=== PATIENT | male | born 1955 | race Caucasian/White ===

== ENCOUNTER 2022-03-04 06:31 | Inpatient (IN) | payer MEDICAID ==
[2022-02-26 15:56] LABS: BASOPHILS # (AUTO) 0.1 X10'3 (0-0.2); BASOPHILS % (AUTO) 0.8 % (0-1); EOSINOPHILS # (AUTO) 0.1 X10'3 (0-0.9); EOSINOPHILS % (AUTO) 1.9 % (0-6); LYMPHOCYTES % (AUTO) 16.3 % (21-51); MEAN CORPUSCULAR HEMOGLOBIN 32.3 PG (27.0-31.0); MEAN CORPUSCULAR HGB CONC 34.2 g/dL (33.0-36.5); MEAN CORPUSCULAR VOLUME 94.5 FL (78-98); MEAN PLATELET VOLUME 8.9 FL (7.4-10.4); MONOCYTES # (AUTO) 0.6 X10'3 (0-0.9); NEUTROPHILS # (AUTO) 4.5 X10'3 (1.8-7.7); PRE OP HEMATOCRIT 43.1 % (42.0-52.0); PRE OP HEMOGLOBIN 14.7 g/dL (14.0-17.9); PRE OP PLATELET COUNT 233 X10'3 (140-440); RED BLOOD COUNT 4.56 X10'6 (4.70-6.10); RED CELL DISTRIBUTION WIDTH 14.1 % (11.5-14.5)
[2022-02-26 16:02] LABS: PRE OP PROTIME 10.2 SECONDS (9.0-12.0)
[2022-02-26 16:12] LABS: ALBUMIN/GLOBULIN RATIO 1.4 (1.1-1.5); ALKALINE PHOSPHATASE 87 IU/L (46-116); BLOOD UREA NITROGEN 4 MG/DL (7-18); BUN/CREATININE RATIO 2.5 (5.4-32.0); CALCIUM 8.4 MG/DL (8.5-10.1); CHLORIDE 100 MMOL/L (99-107); CREATININE 1.57 MG/DL (0.60-1.10); PRE OP ALT 21 U/L (30-65); PRE OP ANION GAP 10 (8-16); PRE OP AST 21 U/L (10-37); PRE OP BILIRUB, TOTAL 0.4 MG/DL (0.0-1.0); PRE OP GLUCOSE 114 MG/DL (70-104); PRE OP SODIUM 135 MMOL/L (135-145); TOTAL CARBON DIOXIDE 24.9 MMOL/L (24-32); TOTAL PROTEIN 6.9 G/DL (6.4-8.2); eGFR 45 ML/MIN
[~2022-03-04] VITALS: Ht 170.2 cm; Wt 69.2 kg
[2022-03-04] VITALS (26 sets, daily range): BP systolic 117–177; BP diastolic 63–113
[~2022-03-04 06:31] MED LIST: ALBU8.5H17 INH; ASPI81TA52 PO; ATOR40TA72 PO; CLON1TAB12 PO; DOCUMENT DATE & TIME OF BETA-BLOCKER PO ONE; FOLI1TAB27 PO; GABA300C PO; HYDR-3972 PO; LANS30TA4 PO; LEVO100T9 PO; LOP12.5T PO; NITR0.4T51 SL; NITR1PAT63 TD; albuterol 2.5 MG/3 ML nebule NEB ONE; cefazolin/dext.iso 2gm/50ml IV ONE; famotidine 20mg tablet PO ONE; ringers solution, lacted 1,000 ML IV SCH; vancomycin/NS 1 GM in NS 250 ML IV ONE
[2022-03-04] MEDS ORDERED: vancomycin 1,000mg inj ONE (07:37)
--- NOTE | 2022-03-04 08:00 | NUR ---
CSM TO BILAT FEET INTACT. PEDAL PULSES NORMAL AND MARKED, PT USED OINTMENT TO NOSE X 4 DAYS, SHOWERD WITH HIBICLENS X 5 DAYS. PT STATES HE DID NOT WATCH THE DVD "BECAUSE I JUST DIDNT WANT TO" EDUCATED PT THE IMPORTANCE OF WATCHING THE DVD IS HAS EDUCATION OF POST OP AND WHAT TO EXPECT. PT STATS HE WILL WATCH IT ONCE HE IS DC HOME
[2022-03-04] MEDS ORDERED: cloNIDine hcl/PF 100mcg/ml inj ONE (08:07)
[2022-03-04] MEDS ORDERED: tetracaine 1% (10mg/ml) pres. free inj. ONE (08:09)
[2022-03-04] MEDS ORDERED: midazolam 1 mg/ML 2ml injection ONE (08:10)
[2022-03-04] MEDS ORDERED: morphine /PF 1mg/ml 10ml inj. ONE (08:38)
[2022-03-04] MEDS ORDERED: 0.9 % SODIUM CHLORIDE 10 ML VIAL ONE ×2 (09:36)
[2022-03-04] MEDS ORDERED: ROPIVAcaine 0.5% (5mg/ml) 30ml vial ONE ×2 (09:36→11:29)
[2022-03-04] MEDS ORDERED: propofol inj 20 ML IV ONE ×2 (09:36)
[2022-03-04] MEDS ORDERED: dexamethasone sod phosphate 4mg/ml inj. ONE (09:36)
[2022-03-04] MEDS ORDERED: ipratropium/albuterol 3ml nebule IH ONE (09:45)
[2022-03-04] MEDS ORDERED: diphenhydrAMINE 50 mg/ml inj IV PRN (09:45)
[2022-03-04] MEDS ORDERED: naloxone 2mg/2ml inj 2 MG in normal saline 500ml IV soln 500 ML IV PRN (09:45)
[2022-03-04] MEDS ORDERED: proCHLORperazine 10 MG/2 ml inj IV PRN (09:45)
[2022-03-04] MEDS ORDERED: morphine 2 MG/ML inj. syringe IV PRN (09:45)
[2022-03-04] MEDS ORDERED: naloxone 0.4 mg/ml inj IV PRN ×2 (09:45→12:00)
[2022-03-04] MEDS ORDERED: acetaminophen 1,000mg/100ml IV 100 ML IV PRN (09:45)
[2022-03-04] MEDS ORDERED: meperidine/PF 25mg/ml syringe IV PRN (09:45)
[2022-03-04] MEDS ORDERED: HYDROmorphone/PF 0.2 MG/ML SYRINGE IV PRN ×2 (09:45)
[2022-03-04] MEDS ORDERED: ringers solution, lacted 1,000 ML IV SCH (09:45)
[2022-03-04] MEDS ORDERED: labetalol 20mg/4ml (5mg/ml) syringe IV PRN (09:45)
[2022-03-04] MEDS ORDERED: hydrALAZINE 20mg/ml inj. IV PRN (09:45)
[2022-03-04] MEDS ORDERED: morphine 4 MG/ML inj SYRINge IV PRN (09:45)
[2022-03-04] MEDS ORDERED: ondansetron/PF 4mg/2ml inj IV PRN ×3 (09:45→12:00)
[2022-03-04] MEDS ORDERED: tranexamic acid inj. 1,000 MG in 0.7% saline 100 ML PMX IV ONE (10:50)
--- NOTE | 2022-03-04 11:41 | NUR ---
Received from OR via HOSPITAL BED, accompanied by Anesthesiologist DR COFFEY and report given by Anesthesiolgist. PT PRESENTS WITH PIV 18G LEFT HAND, WRAP WITH POWDER PACK, FAM CATHETER 850MLS OUTPUT, VSS. Addendum: 03/04/22 at 1158 by Miriam Goodwin RN, RN Amended: Links added.
[2022-03-04] MEDS ORDERED: bisacodyl 10mg suppository rectal RC PRN (12:00)
[2022-03-04] MEDS ORDERED: oxyCODONE IR 5mg (immed. release) tablet PO PRN (12:00)
[2022-03-04] MEDS ORDERED: acetaminophen 325mg tablet PO PRN (12:00)
[2022-03-04] MEDS ORDERED: magnesium hydroxide 30ml (MOM) UD suspension PO PRN (12:00)
[2022-03-04] MEDS ORDERED: HYDROmorphone inj. 0.5 MG/0.5 ML DISP.SYRIN IV PRN (12:00)
[2022-03-04] MEDS ORDERED: HYDROmorphone 1 mg/ml syringe IV PRN (12:00)
[2022-03-04] MEDS ORDERED: diphenhydrAMINE 25mg capsule PO PRN ×2 (12:00)
--- NOTE | 2022-03-04 12:15 | NUR ---
PER DR COFFEY, 10:00 TRANEXAMIC ACID 1,000MG GIVEN IN THE OR. Addendum: 03/04/22 at 1217 by Miriam Goodwin RN, RN Amended: Links added.
--- NOTE | 2022-03-04 12:41 | NUR ---
Patient in room PAS IN 901. I have received report from Miriam in recovery room and had the opportunity to ask questions and assume patient care.
[2022-03-04] MEDS ORDERED: HYDROcodone/acetaminophen 10/325mg tab PO PRN (12:55)
[2022-03-04] MEDS ORDERED: clonazePAM 1mg tablet PO PRN (12:55)
[2022-03-04] MEDS ORDERED: albuterol 2.5 MG/3 ML nebule NEB PRN (12:55)
[2022-03-04] MEDS ORDERED: nitroGLYCERIN 0.4mg SUBLingual tab SL SCH (12:55)
--- NOTE | 2022-03-04 14:01 | NUR ---
Report called to receiving nurse KERRIE ROMAN. Transferred via [facility]OPS[facility] BED. PT Belongings WERE LEFT WITH PT'S LUIS IN WAITING ROOM. PT BECAME AGGITATED IN THE PACU AND REPORTED HE WAS GOING TO GO AMA IF HIS COULD NOT STAY WITH HIM OVERNIGHT. REPORT GIVEN TO KERRIE ROMAN. PT TAKEN TO ROOM 401 BY OR [employer]. Special Issues communicated to receiving nurse. Addendum: 03/04/22 at 1425 by Miriam Goodwin RN, RN Amended: Links added.
--- NOTE | 2022-03-04 14:32 | NUR ---
Patient is currently teary eyed and is at bedside. He insists he will leave rosalina acosta, I said to him lets try to at least get the physical therapist to see you first.
[2022-03-04] MEDS: acetaminophen 325mg tablet PO SCH ×2 (14:46→20:03)
[2022-03-04] MEDS: gabapentin 300mg capsule PO SCH ×2 (14:47→20:07)
[2022-03-04] MEDS ORDERED: tranexamic acid inj. 700 MG in normal saline 100ml IV soln 93 ML IV ONE (15:00)
[2022-03-04] MEDS: ceFAZolin/D5W- 1GM premix 50 ML IV SCH (16:10)
[2022-03-04] MEDS: potassium cl 20mEq in 1/2 NS 1,000 ML IV SCH (16:11)
[2022-03-04] MEDS: metoprolol tartrate 25mg tablet PO SCH (20:00)
[2022-03-04] MEDS ORDERED: vancomycin/NS 1 GM ADD-VANTAGE 250 ML IV SCH (20:00)
[2022-03-04] MEDS: oxyCODONE IR 5mg (immed. release) tablet PO PRN (20:15)
[2022-03-04] MEDS ORDERED: gabapentin 300mg capsule PO SCH (21:00)
[2022-03-04] MEDS ORDERED: sennosides 8.6mg tablet PO SCH (21:00)
[2022-03-05] MEDS: ceFAZolin/D5W- 1GM premix 50 ML IV SCH (00:40)
[2022-03-05] MEDS: oxyCODONE IR 5mg (immed. release) tablet PO PRN ×3 (01:27→11:19)
[2022-03-05] MEDS: acetaminophen 325mg tablet PO SCH ×2 (01:27→07:26)
[2022-03-05 02:00] VITALS: BP 121/75
[2022-03-05] MEDS: potassium cl 20mEq in 1/2 NS 1,000 ML IV SCH (05:36)
[2022-03-05 06:00] VITALS: BP 141/66
[2022-03-05 06:31] LABS: BASOPHILS % (AUTO) 0.3 % (0-1); EOSINOPHILS % (AUTO) 0.3 % (0-6); HEMATOCRIT 41.5 % (42.0-52.0); HEMOGLOBIN 13.9 g/dl (14.0-17.9); LYMPHOCYTES # (AUTO) 1.4 X10'3 (1.1-4.8); LYMPHOCYTES % (AUTO) 16.4 % (21-51); MEAN CORPUSCULAR HEMOGLOBIN 31.6 PG (27.0-31.0); MEAN CORPUSCULAR HGB CONC 33.6 g/dL (33.0-36.5); MEAN CORPUSCULAR VOLUME 94.3 FL (78-98); MEAN PLATELET VOLUME 9.5 FL (7.4-10.4); MONOCYTES # (AUTO) 1.1 X10'3 (0-0.9); MONOCYTES % (AUTO) 12.4 % (2-12); NEUTROPHILS % (AUTO) 70.6 % (42-75); PLATELET COUNT 198 X10'3 (140-440); WHITE BLOOD COUNT 8.5 X10'3 (4.5-11.0)
--- NOTE | 2022-03-05 06:37 | NUR ---
Problems reprioritized. Patient report given, questions answered & plan of care reviewed with ABEL WHARTON.
--- NOTE | 2022-03-05 06:38 | NUR ---
Patient in room ORTHO 4015. I have received report from Angeles ROMAN and had the opportunity to ask questions and assume patient care.
[2022-03-05 07:13] LABS: ANION GAP 10 (8-16); CHLORIDE 103 MMOL/L (99-107); POTASSIUM 4.1 MMOL/L (3.5-5.1); SODIUM 140 MMOL/L (135-145); TOTAL CARBON DIOXIDE 27.3 MMOL/L (24-32)
[2022-03-05] MEDS: gabapentin 300mg capsule PO SCH (07:26)
[2022-03-05] MEDS: metoprolol tartrate 25mg tablet PO SCH (07:27)
[2022-03-05] MEDS ORDERED: atorvastatin 20mg tablet PO SCH (08:00)
[2022-03-05] MEDS ORDERED: pantoprazole 40mg Tablet.DR PO SCH (08:00)
[2022-03-05] MEDS ORDERED: enoxaparin 40mg/0.4ml syringe SQ SCH (08:00)
[2022-03-05] MEDS ORDERED: nitroGLYCERIN 0.2mg/hour patch TD SCH (08:00)
[2022-03-05] MEDS ORDERED: levoTHYROXINE 100mcg tablet PO SCH (08:00)
[2022-03-05] MEDS ORDERED: folic acid 1mg tablet PO SCH (08:00)
--- NOTE | 2022-03-05 09:48 | NUR ---
Joint Surgery Consult: Pt s/p R hip surgery this admit. Pt seen by MILVIA for written/verbal high protein diet ed w/ RD contact information provided. MILVIA encouraged pt to contact dietitian's office if further questions/concerns. Addendum: 03/05/22 at [address] Amended: Links added.
[2022-03-05 10:00] VITALS: BP 150/83
[2022-03-05] MEDS ORDERED: nitroGLYCERIN 0.4mg SUBLingual tab SL PRN (10:45)
--- NOTE | 2022-03-05 14:07 | NUR ---
Explained all discharge and medication instructions to pt and his . Pt verbalized understanding. Discontinued piv, tip intact.
[2022-03-05] MEDS ORDERED: celeCOXIB 100mg capsule PO SCH (20:00)
[2022-03-06] MEDS ORDERED: acetaminophen 325mg tablet PO PRN (12:00)
== END 2022-03-05 13:00 | disposition home or self-care (01) | DRG 324 ==
LOC: PAS IN 06:31 → ORTHO 4S 14:10
PROVIDERS: ADMIT Orthopaedic Surgery; ATTEND Orthopaedic Surgery
PROC: 3E0T3BZ Introduction of Anesthetic Agent into Peripheral Nerves and Plexi, Percutaneous Approach (ICD-10-PCS; 2022-03-04)
PROC: 3E0T33Z Introduction of Anti-inflammatory into Peripheral Nerves and Plexi, Percutaneous Approach (ICD-10-PCS; 2022-03-04)
PROC: 0SR9029 Replacement of Right Hip Joint with Metal on Polyethylene Synthetic Substitute, Cemented, Open Approach (ICD-10-PCS; principal; 2022-03-04 08:33)
DX: M16.11 Unilateral primary osteoarthritis, right hip (principal); I12.9 Hypertensive chronic kidney disease with stage 1 through stage 4 chronic kidney disease, or unspecified chronic kidney disease; J44.9 Chronic obstructive pulmonary disease, unspecified; N18.9 Chronic kidney disease, unspecified
CPT/HCPCS: 36415; 71046; 72170; 80051; 80053; 82948; 84443; 85025; 85610; 85730; 86870; 86880; 86885; 86900; 86901; 86920; 86922; 87081; 94760; 97110; 97116; 97161; 97530; G0378; J0690; J0735; J1100; J1170; J1650; J2250; J2274; J2704; J2795; J3370; J3480; J3490; J7120; U0003; U0005

== ENCOUNTER 2023-07-17 14:13 | Emergency (ER) | payer MEDICAID ==
[~2023-07-17 14:13] MED LIST changes: -DOCUMENT DATE & TIME OF BETA-BLOCKER PO ONE; -albuterol 2.5 MG/3 ML nebule NEB ONE; -cefazolin/dext.iso 2gm/50ml IV ONE; -famotidine 20mg tablet PO ONE; -ringers solution, lacted 1,000 ML IV SCH; -vancomycin/NS 1 GM in NS 250 ML IV ONE
[2023-07-17 14:39] LABS: BASOPHILS # (AUTO) 0.1 X10'3 (0-0.2); BASOPHILS % (AUTO) 0.9 % (0-1); EOSINOPHILS # (AUTO) 0.2 X10'3 (0-0.9); EOSINOPHILS % (AUTO) 2.2 % (0-6); HEMATOCRIT 40.9 % (42.0-52.0); LYMPHOCYTES # (AUTO) 1.4 X10'3 (1.1-4.8); LYMPHOCYTES % (AUTO) 19.5 % (21-51); MEAN CORPUSCULAR HEMOGLOBIN 32.2 PG (27.0-31.0); MEAN CORPUSCULAR HGB CONC 34.2 g/dL (33.0-36.5); MEAN CORPUSCULAR VOLUME 94.2 FL (78-98); MEAN PLATELET VOLUME 8.4 FL (7.4-10.4); MONOCYTES # (AUTO) 0.7 X10'3 (0-0.9); MONOCYTES % (AUTO) 9.7 % (2-12); NEUTROPHILS % (AUTO) 67.7 % (42-75); PLATELET COUNT 224 X10'3 (140-440); RED BLOOD COUNT 4.34 X10'6 (4.70-6.10); RED CELL DISTRIBUTION WIDTH 14.3 % (11.5-14.5); WHITE BLOOD COUNT 7.4 X10'3 (4.5-11.0)
[2023-07-17 14:49] LABS: ALANINE AMINOTRANSFERASE 29 U/L (12-78); ALBUMIN 3.8 G/DL (3.4-5.0); ALBUMIN/GLOBULIN RATIO 1.4 (1.1-1.5); ALKALINE PHOSPHATASE 87 IU/L (46-116); ANION GAP 5 (8-16); ASPARTATE AMINO TRANSFERASE 23 U/L (10-37); BILIRUBIN,TOTAL 0.4 MG/DL (0.1-1.0); BLOOD UREA NITROGEN 14 MG/DL (7-18); BUN/CREATININE RATIO 8.1 (10.0-20.0); CALCIUM 8.6 MG/DL (8.5-10.1); CHLORIDE 101 MMOL/L (99-107); CREATININE 1.72 MG/DL (0.60-1.10); GLUCOSE 107 MG/DL (70-104); POTASSIUM 4.3 MMOL/L (3.5-5.1); SODIUM 135 MMOL/L (135-145); TOTAL CARBON DIOXIDE 29.2 MMOL/L (24-32); TOTAL PROTEIN 6.6 G/DL (6.4-8.2); eGFR 40 ML/MIN
[2023-07-17 14:57] LABS: PRO BRAIN NATRIURETIC PEPTIDE 96 PG/ML (0-125)
== END 2023-07-17 17:56 | disposition left against medical advice (07) ==
LOC: ER 14:14
DX: R07.89 Other chest pain (principal); Z53.21 Procedure and treatment not carried out due to patient leaving prior to being seen by health care provider
CPT/HCPCS: 36415; 80053; 83880; 84484; 85025; 93005; 99281

== ENCOUNTER 2024-10-13 17:33 | Emergency (ER) | payer MEDICAID ==
[~2024-10-13] VITALS: Ht 170.2 cm; Wt 59.1 kg
[2024-10-13 19:03] LABS: ALANINE AMINOTRANSFERASE 17 U/L (12-78); ALBUMIN 4.4 G/DL (3.4-5.0); ALBUMIN/GLOBULIN RATIO 1.4 (1.1-1.5); ALKALINE PHOSPHATASE 69 IU/L (46-116); ANION GAP 8 (8-16); ASPARTATE AMINO TRANSFERASE 22 U/L (10-37); BILIRUBIN,TOTAL 0.4 MG/DL (0.1-1.0); BLOOD UREA NITROGEN 18 MG/DL (7-18); CALCIUM 8.8 MG/DL (8.5-10.1); CHLORIDE 99 MMOL/L (99-107); GLUCOSE 92 MG/DL (70-104); LIPASE 47 U/L (16-77); POTASSIUM 4.1 MMOL/L (3.5-5.1); SODIUM 135 MMOL/L (135-145); TOTAL PROTEIN 7.6 G/DL (6.4-8.2); eCRCL 40 ML/MIN; eGFR 47 ML/MIN
[2024-10-13 19:10] LABS: BASOPHILS % (AUTO) 0.5 % (0-1); EOSINOPHILS % (AUTO) 0.4 % (0-6); HEMATOCRIT 40.8 % (42.0-52.0); HEMOGLOBIN 13.9 g/dl (14.0-17.9); LYMPHOCYTES # (AUTO) 1.3 X10'3 (1.1-4.8); LYMPHOCYTES % (AUTO) 18.2 % (21-51); MEAN CORPUSCULAR HEMOGLOBIN 32.9 PG (27.0-31.0); MEAN CORPUSCULAR VOLUME 96.9 FL (78-98); MEAN PLATELET VOLUME 8.8 FL (7.4-10.4); MONOCYTES # (AUTO) 0.8 X10'3 (0-0.9); MONOCYTES % (AUTO) 10.8 % (2-12); NEUTROPHILS % (AUTO) 70.1 % (42-75); PLATELET COUNT 236 X10'3 (140-440); RED BLOOD COUNT 4.21 X10'6 (4.70-6.10); RED CELL DISTRIBUTION WIDTH 13.6 % (11.5-14.5); WHITE BLOOD COUNT 7.1 X10'3 (4.5-11.0)
[2024-10-13] MEDS ORDERED: LACT10SO7 PO (22:16)
[2024-10-13 22:41] VITALS: BP 152/78; PULSE 80; RESP 16; TEMP 98.5; O2SAT 98
== END 2024-10-13 22:44 | disposition home or self-care (01) ==
LOC: ER 17:34
DX: K59.00 Constipation, unspecified (principal); G89.29 Other chronic pain; M54.9 Dorsalgia, unspecified; Z79.82 Long term (current) use of aspirin; Z79.899 Other long term (current) drug therapy
CPT/HCPCS: 36415; 74018; 80053; 83690; 85025; 99284

== ENCOUNTER 2024-10-18 10:43 | Outpatient (CLI) | payer MEDICAID ==
[~2024-10-18 10:43] MED LIST changes: +LACT10SO7 PO
== END 2024-10-18 23:59 | disposition home or self-care (01) ==
LOC: RAD 10:43
PROVIDERS: ATTEND Family Medicine
DX: Z12.2 Encounter for screening for malignant neoplasm of respiratory organs (principal); J43.8 Other emphysema; R91.8 Other nonspecific abnormal finding of lung field; T14.90XS Injury, unspecified, sequela; V89.2XXS Person injured in unspecified motor-vehicle accident, traffic, sequela; I25.10 Atherosclerotic heart disease of native coronary artery without angina pectoris; M47.812 Spondylosis without myelopathy or radiculopathy, cervical region; M48.02 Spinal stenosis, cervical region; G31.9 Degenerative disease of nervous system, unspecified; Z87.891 Personal history of nicotine dependence
CPT/HCPCS: 70450; 71271; 72125

== ENCOUNTER 2025-01-05 14:18 | Emergency (ER) | payer MEDICAID ==
[~2025-01-05] VITALS: Ht 170.2 cm; Wt 59.0 kg
[2025-01-05 14:29] VITALS: BP 172/97; PULSE 85; RESP 16; O2SAT 96
[2025-01-05 15:17] LABS: BASOPHILS # (AUTO) 0.1 X10'3 (0-0.2); BASOPHILS % (AUTO) 0.7 % (0-1); EOSINOPHILS % (AUTO) 0.2 % (0-6); HEMATOCRIT 43.4 % (42.0-52.0); LYMPHOCYTES # (AUTO) 1.2 X10'3 (1.1-4.8); LYMPHOCYTES % (AUTO) 11.9 % (21-51); MEAN CORPUSCULAR HGB CONC 34.7 g/dL (33.0-36.5); MEAN CORPUSCULAR VOLUME 98.1 FL (78-98); MEAN PLATELET VOLUME 9.3 FL (7.4-10.4); MONOCYTES # (AUTO) 0.8 X10'3 (0-0.9); NEUTROPHILS % (AUTO) 79.2 % (42-75); PLATELET COUNT 233 X10'3 (140-440); RED BLOOD COUNT 4.42 X10'6 (4.70-6.10); RED CELL DISTRIBUTION WIDTH 13.8 % (11.5-14.5); WHITE BLOOD COUNT 10.1 X10'3 (4.5-11.0)
[2025-01-05 15:33] LABS: ALANINE AMINOTRANSFERASE 22 U/L (12-78); ALBUMIN 4.7 G/DL (3.4-5.0); ALBUMIN/GLOBULIN RATIO 1.6 (1.1-1.5); ALKALINE PHOSPHATASE 64 IU/L (46-116); ANION GAP 11 (8-16); ASPARTATE AMINO TRANSFERASE 21 U/L (10-37); BILIRUBIN,TOTAL 0.3 MG/DL (0.1-1.0); BLOOD UREA NITROGEN 27 MG/DL (7-18); BUN/CREATININE RATIO 18.6 (10.0-20.0); CALCIUM 9.5 MG/DL (8.5-10.1); CHLORIDE 101 MMOL/L (99-107); CREATININE 1.45 MG/DL (0.60-1.10); GLUCOSE 111 MG/DL (70-104); POTASSIUM 4.1 MMOL/L (3.5-5.1); SODIUM 137 MMOL/L (135-145); TOTAL CARBON DIOXIDE 25.1 MMOL/L (24-32); TOTAL PROTEIN 7.7 G/DL (6.4-8.2); eCRCL 41 ML/MIN; eGFR 49 ML/MIN
[2025-01-05 16:19] LABS: BILIRUBIN,URINE NEGATIVE (Neg); CLARITY,URINE CLEAR (Clear); COLOR,URINE YELLOW (Yellow); GLUCOSE, URINE NEGATIVE (Neg); KETONES,URINE 15 mg/dl (Neg); LEUKOCYTE ESTERASE ,URINE NEGATIVE (Neg); NITRITES, URINE NEGATIVE (Neg); OCCULT BLOOD,URINE NEGATIVE (Neg); PROTEIN,URINE NEGATIVE (Neg); UROBILINOGEN,URINE 0.2 E.U/dL (0.2-1.0)
[2025-01-05 16:20] LABS: UA COLLECTION TYPE CLN CATCH MIDSTREAM
[2025-01-05 16:48] VITALS: TEMP 98.1
== END 2025-01-05 16:49 | disposition home or self-care (01) ==
LOC: ER 14:18
DX: G47.00 Insomnia, unspecified (principal); F43.9 Reaction to severe stress, unspecified; R51.9 Headache, unspecified; G89.29 Other chronic pain; M54.9 Dorsalgia, unspecified; Z79.899 Other long term (current) drug therapy; Z79.82 Long term (current) use of aspirin
CPT/HCPCS: 36415; 70450; 71046; 80053; 81003; 85025; 93005; 99285

== ENCOUNTER 2025-01-10 22:01 | Emergency (ER) | payer MEDICARE, MEDICAID ==
[~2025-01-10] VITALS: Ht 177.8 cm; Wt 56.0 kg
[2025-01-10 22:04] VITALS: BP 148/72; PULSE 82; RESP 16; TEMP 96.8; O2SAT 96
[2025-01-10] MEDS ORDERED: ketorolac trometh 30MG/ML vial 30 MG/ML VIAL IM ONE (22:20)
[2025-01-10 22:49] LABS: BASOPHILS % (AUTO) 0.3 % (0-1); EOSINOPHILS % (AUTO) 0 % (0-6); HEMATOCRIT 37.1 % (42.0-52.0); HEMOGLOBIN 12.7 g/dl (14.0-17.9); LYMPHOCYTES # (AUTO) 1.1 X10'3 (1.1-4.8); LYMPHOCYTES % (AUTO) 13.9 % (21-51); MEAN CORPUSCULAR HEMOGLOBIN 33.7 PG (27.0-31.0); MEAN CORPUSCULAR HGB CONC 34.1 g/dL (33.0-36.5); MEAN CORPUSCULAR VOLUME 98.7 FL (78-98); MEAN PLATELET VOLUME 9.1 FL (7.4-10.4); MONOCYTES # (AUTO) 0.7 X10'3 (0-0.9); MONOCYTES % (AUTO) 8.6 % (2-12); NEUTROPHILS % (AUTO) 77.2 % (42-75); PLATELET COUNT 214 X10'3 (140-440); RED BLOOD COUNT 3.76 X10'6 (4.70-6.10); RED CELL DISTRIBUTION WIDTH 14.1 % (11.5-14.5); WHITE BLOOD COUNT 7.8 X10'3 (4.5-11.0)
[2025-01-10 23:03] LABS: ALANINE AMINOTRANSFERASE 25 U/L (12-78); ALBUMIN/GLOBULIN RATIO 1.2 (1.1-1.5); ALKALINE PHOSPHATASE 57 IU/L (46-116); ANION GAP 15 (8-16); ASPARTATE AMINO TRANSFERASE 44 U/L (10-37); BILIRUBIN,TOTAL 0.4 MG/DL (0.1-1.0); BLOOD UREA NITROGEN 15 MG/DL (7-18); BUN/CREATININE RATIO 12.2 (10.0-20.0); CALCIUM 9.1 MG/DL (8.5-10.1); CHLORIDE 101 MMOL/L (99-107); CREATINE KINASE 783 U/L (39-308); CREATININE 1.23 MG/DL (0.60-1.10); GLUCOSE 108 MG/DL (70-104); MAGNESIUM 1.7 MG/DL (1.5-2.4); POTASSIUM 3.5 MMOL/L (3.5-5.1); SODIUM 142 MMOL/L (135-145); TOTAL CARBON DIOXIDE 26.5 MMOL/L (24-32); TOTAL PROTEIN 7.3 G/DL (6.4-8.2); eCRCL 46 ML/MIN; eGFR 59 ML/MIN
== END 2025-01-10 23:26 | disposition left against medical advice (07) ==
LOC: ER 22:02
DX: M79.605 Pain in left leg (principal); M79.604 Pain in right leg; R74.8 Abnormal levels of other serum enzymes; F17.200 Nicotine dependence, unspecified, uncomplicated; F41.9 Anxiety disorder, unspecified; Z79.82 Long term (current) use of aspirin
CPT/HCPCS: 36415; 80053; 82550; 83735; 85025; 99283

== ENCOUNTER → 2025-03-27 | Emergency (ER) | payer MEDICARE, MEDICAID ==
[~2025-03-27] VITALS: Ht 170.2 cm; Wt 51.8 kg
--- NOTE | 2025-03-27 03:40 | ELECTROCARDIOGRAPH REPORT ---
[facility] Test Date: 2025-03-27 Test Time: 03:38:10 Pat Name: MICHAELA CENTENO Department: [facility]-ER Patient ID: [id number] Room: Gender: M Space Operations: : 1955 Requested By: NADIR VELA Order Number: [id number] Reading MD: Dr. Ty Wood Measurements Intervals Francis Rate: 71 P: 75 OK: 126 QRS: -40 QRSD: 91 T: 60 QT: 388 QTc: 422 Interpretive Statements Sinus rhythm Left anterior fascicular block Abnormal R-wave progression, early transition Electronically Signed On 03-28-2025 21:43:[address] Ty Wood Please click the below link to view image of tracing.
[2025-03-27 04:24] LABS: BASOPHILS % (AUTO) 0.3 % (0-1); EOSINOPHILS % (AUTO) 0 % (0-6); HEMATOCRIT 39.2 % (42.0-52.0); HEMOGLOBIN 13.7 g/dl (14.0-17.9); LYMPHOCYTES % (AUTO) 10.1 % (21-51); MEAN CORPUSCULAR HEMOGLOBIN 33.4 PG (27.0-31.0); MEAN CORPUSCULAR VOLUME 95.3 FL (78-98); MEAN PLATELET VOLUME 8.8 FL (7.4-10.4); MONOCYTES % (AUTO) 10.8 % (2-12); NEUTROPHILS # (AUTO) 7.6 X10'3 (1.8-7.7); NEUTROPHILS % (AUTO) 78.8 % (42-75); PLATELET COUNT 206 X10'3 (140-440); RED BLOOD COUNT 4.12 X10'6 (4.70-6.10); RED CELL DISTRIBUTION WIDTH 13.3 % (11.5-14.5); WHITE BLOOD COUNT 9.7 X10'3 (4.5-11.0)
--- NOTE | 2025-03-27 04:26 | Physician Documentation ---
History of Present Illness ~ Chief Complaint: Numbness Stated Complaint: NUMBNESS BODY Time Seen by MD: 04:25 Primary Medical Doctor: jimbo wisdom HPI Patient presents to the emergency room with chief complaint of whole-body numbness. He was attempting to go to sleep lying in bed in between midnight and 12 30 when he suddenly felt his whole-body go numb. No weakness. Symptoms have resolved. No report of any one-sided symptoms. Patient was also having some pain in his posterior left neck that he states hurts to turn his head. Patient reports he has a problem with cramping. Medication Reconciliation Allergies: Coded Allergies: No Known Allergies (Unverified , 01/10/25) Scheduled Aspirin (Aspirin EC), 1 TAB PO DAILY, (Reported) Atorvastatin Calcium (Atorvastatin Calcium), 1.5 TAB PO DAILY, (Reported) Folic Acid* (Folic Acid*), 1 MG PO DAILY, (Reported) Gabapentin (Neurontin), 300 MG PO HS, (Reported) Lactulose (Lactulose), 30 ML PO DAILY Lansoprazole (Prevacid), 1 TAB PO DAILY, (Reported) Levothyroxine Sodium (Levothyroxine Sodium), 1 TAB PO DAILY, (Reported) Metoprolol Tartrate (Lopressor tablet), 1 TAB PO Q12H, (Reported) Nitroglycerin Patch 0.2MG/HR* (Nitro-Dur Patch 0.2MG/HR*), 1 PATCH TD DAILY, (Reported) Nitroglycerin SL* (Nitrostat SL*), 1 TAB SL UD, (Reported) Scheduled PRN Albuterol Sulfate (Proair Hfa), 2 PUFFS INH Q4HPRN PRN for wheezing, (Reported) Clonazepam (Clonazepam), 1 TAB PO TID PRN for anxiety, (Reported) Hydrocodone Bit/Acetaminophen (Hydrocodon-Acetaminophn 10-325 tablet), 1 TAB PO Q6H PRN for pain, (Reported) Past Medical History Past Medical History: Chronic Back Pain Past Surgical History: noncontributory Alcohol Use: None Review of Systems ROS All review of systems negative except as per HPI Physical Exam Vital Signs: Temperature: 99.0, Source: Oral, Heart Rate: 78, Respiratory Rate: 16, BP: 141/90, Pulse Oximetry: 100, Weight: 51.800 General Appearance General: Patient is awake, alert, oriented x4 in no acute distress and well appearing.~ Head: Normocephalic and atraumatic. Eyes: Conjunctival normal. EOMI. PERRL. ENT: Mucous membranes moist. Neck: Supple, trachea is midline. Tenderness to palpation over left trapezius muscle. No cervical midline tenderness. No meningismus Chest: Clear to auscultation bilaterally without rales, rhonchi, or wheezes. There is no accessory muscle use or retractions. Cardiac: RRR without murmurs, gallops, or rubs.. Neuro: Cranial nerves II-XII grossly intact. No focal neuro deficits. Patient ambulating without difficulty. Progress Results/Orders Results/Orders Orders - JEFERSON VELA MD Urinalysis, Cult If Indicated (03/27/25 03:33) Completed Orders - JEFERSON VELA MD Electrocardiogram (03/27/25 03:33) CMP (03/27/25 03:33) Cbc/Diff (03/27/25 03:33) Troponin (Single) (03/27/25 03:33) Normal Saline 1000ml (Sodium Chloride 10 (03/27/25 03:35) Medications Received in ER Medications (Trade) Dose Ordered Sig/Loyda Route PRN Reason Start Time Stop Time Status Last Admin Dose Admin Sodium Chloride 1,000 ml @ 1,000 mls/hr ONCE ONCE IV 03/27/25 03:35 03/27/25 04:34 DC 03/27/25 04:41 1,000 MLS/HR Vital Signs 03/27/25 03/27/25 03:28 03:33 Temp 99.0 Pulse 81 78 Resp 16 16 B/P (MAP) 141/90 141/90 (107) Pulse Ox 97 100 Laboratory Tests Test 03/27/25 04:15 White Blood Count 9.7 Red Blood Count 4.12 L Hemoglobin 13.7 L Hematocrit 39.2 L Mean Corpuscular Volume 95.3 Mean Corpuscular Hemoglobin 33.4 H Mean Corpuscular Hemoglobin Concent 35.0 Red Cell Distribution Width 13.3 Platelet Count 206 Mean Platelet Volume 8.8 Neutrophils (%) (Auto) 78.8 H Lymphocytes (%) (Auto) 10.1 L Monocytes (%) (Auto) 10.8 Eosinophils (%) (Auto) 0 Basophils (%) (Auto) 0.3 Neutrophils # (Auto) 7.6 Lymphocytes # (Auto) 1.0 L Monocytes # (Auto) 1.0 H Eosinophils # (Auto) 0.0 Basophils # (Auto) 0.0 CBC Comment Sodium Level 139 Potassium Level 4.1 Chloride Level 102 Carbon Dioxide Level 27.4 Anion Gap 10 Blood Urea Nitrogen 27 H Creatinine 1.46 H Estimated GFR/1.73 m2 48 BUN/Creatinine Ratio 18.5 Glucose Level 112 H Calcium Level 9.3 Total Bilirubin 0.6 Aspartate Amino Transf (AST/SGOT) 20 Alanine Aminotransferase (ALT/SGPT) 20 Alkaline Phosphatase 67 Troponin I High Sensitivity 7 Total Protein 6.8 Albumin 4.2 Globulin 2.6 L Albumin/Globulin Ratio 1.6 H Chemistry Comments EKG/XRAY/CT/US/VASC/MRI EKG : Additional Comment EKG interpreted by myself shows time of 0338, rate 71, sinus rhythm, left axis deviation, no ST changes Medical Decision Making Findings Patient presented to the emergency room with whole-body numbness while going to sleep that has since resolved along with some neck pain. Differentials include but are not limited to neurologic emergency such as stroke, para insomnia, torticollis, electrolyte disturbances therefore emergent labs ordered which were reassuring for no electrolyte abnormalities. Given patient's physical exam he is likely suffering from strain to his trapezius muscle. Regarding patient's whole-body numbness that is spontaneous resolved I suspect that he was suffering from a parents insomnia and given no one-sided symptoms I do not feel he requires workup for possible stroke. Departure Disposition: HOME / SELF CARE / HOMELESS Impression: Primary Impression: Parasomnia Additional Impression: Torticollis Condition: Stable Discharge Instructions: Acute Torticollis, Adult Referrals: NO PRIMARY CARE PROVIDER (PCP) Education Educated: Patient Educated regarding: diagnosis, treatment, need for follow up Signature Scribe Signature: No scribe Attestation: The note accurately reflects work and decisions made by me.Jeferson Vela MD 03/27/25 04:55 JEFERSON VELA MD March 27, 2025 04:26
[2025-03-27 04:39] LABS: ALANINE AMINOTRANSFERASE 20 U/L (12-78); ALBUMIN 4.2 G/DL (3.4-5.0); ALBUMIN/GLOBULIN RATIO 1.6 (1.1-1.5); ALKALINE PHOSPHATASE 67 IU/L (46-116); ANION GAP 10 (8-16); ASPARTATE AMINO TRANSFERASE 20 U/L (10-37); BILIRUBIN,TOTAL 0.6 MG/DL (0.1-1.0); BLOOD UREA NITROGEN 27 MG/DL (7-18); BUN/CREATININE RATIO 18.5 (10.0-20.0); CALCIUM 9.3 MG/DL (8.5-10.1); CHLORIDE 102 MMOL/L (99-107); CREATININE 1.46 MG/DL (0.60-1.10); GLUCOSE 112 MG/DL (70-104); POTASSIUM 4.1 MMOL/L (3.5-5.1); SODIUM 139 MMOL/L (135-145); TOTAL CARBON DIOXIDE 27.4 MMOL/L (24-32); TOTAL PROTEIN 6.8 G/DL (6.4-8.2); eCRCL 36 ML/MIN; eGFR 48 ML/MIN
[2025-03-27] MEDS: normal saline 1000ml 1,000 ML IV ONE (04:41)
[2025-03-27] MEDS: ketorolac trometh 15mg/ml vial 15 MG/ML ML IV ONE (05:30)
[2025-03-27] MEDS: normal saline 1000ML IV soln IVB ONE (05:33)
[2025-03-27 05:34] VITALS: BP 195/84; PULSE 80; RESP 14; TEMP 99; O2SAT 100
[2025-03-27] MEDS: midazolam 1 mg/ML 2ml injection IV ONE (05:56)
== END | disposition home or self-care (01) ==
LOC: ER 03:21
DX: G47.50 Parasomnia, unspecified (principal); M43.6 Torticollis; Z79.82 Long term (current) use of aspirin
CPT/HCPCS: 36415; 80053; 84484; 85025; 93005; 96361; 96374; 96375; 99284; J1885; J2250; J7030; J7040

== ENCOUNTER 2025-06-14 07:40 | Emergency (ER) | payer MEDICARE, MEDICAID ==
[~2025-06-14] VITALS: Ht 170.2 cm; Wt 45.4 kg
[2025-06-14 08:02] VITALS: TEMP 98.3
[2025-06-14] MEDS ORDERED: TRAZ-256 PO (09:02)
--- NOTE | 2025-06-14 09:02 | Physician Documentation ---
History of Present Illness ~ Chief Complaint: Anxiety Stated Complaint: ANXIETY Time Seen by MD: 08:41 Primary Medical Doctor: jimbo wisdom Source: patient Mode of Arrival: EMS Exam Limitations: no limitations HPI Chief Complaint: Anxiety, panic attack Caveat: None Independent Historians: Paramedics History of Present Illness: Patient is a 69-year-old man brought in by paramedics from home. Patient woke up at 6:00 a.m. feeling impending doom and anxiety. Patient denies any other associated symptoms. Patient states that he used to be on hydrocodone to help him sleep and Klonopin for his anxiety. Patient has not been on these medications for some time. Patient states that he is unable to get an appointment with his primary care doctor and [place] and that she will not refill his prescriptions. Review of systems: All systems were reviewed and are negative except for what is indicated in the history of present illness. Past Medical History: COPD, HTN, anxiety Past Surgical History: Noncontributory Social History: Former smoker, denies alcohol use or drug use Medications: Reviewed as documented Nursing Notes Allergies: Reviewed as documented in Nursing Notes Medication Reconciliation Allergies: Coded Allergies: No Known Allergies (Unverified , 01/10/25) Scheduled Aspirin (Aspirin EC), 1 TAB PO DAILY, (Reported) Atorvastatin Calcium (Atorvastatin Calcium), 1.5 TAB PO DAILY, (Reported) Folic Acid* (Folic Acid*), 1 MG PO DAILY, (Reported) Gabapentin (Neurontin), 300 MG PO HS, (Reported) Lactulose (Lactulose), 30 ML PO DAILY Lansoprazole (Prevacid), 1 TAB PO DAILY, (Reported) Levothyroxine Sodium (Levothyroxine Sodium), 1 TAB PO DAILY, (Reported) Metoprolol Tartrate (Lopressor tablet), 1 TAB PO Q12H, (Reported) Nitroglycerin Patch 0.2MG/HR* (Nitro-Dur Patch 0.2MG/HR*), 1 PATCH TD DAILY, (Reported) Nitroglycerin SL* (Nitrostat SL*), 1 TAB SL UD, (Reported) Trazodone HCl (Trazodone HCl), 1 TAB PO HS Scheduled PRN Albuterol Sulfate (Proair Hfa), 2 PUFFS INH Q4HPRN PRN for wheezing, (Reported) Clonazepam (Clonazepam), 1 TAB PO TID PRN for anxiety, (Reported) Hydrocodone Bit/Acetaminophen (Hydrocodon-Acetaminophn 10-325 tablet), 1 TAB PO Q6H PRN for pain, (Reported) Past Medical History Past Medical History: Chronic Back Pain Past Surgical History: noncontributory Alcohol Use: None Review of Systems All Other Systems at this time: Reviewed and Negative ROS Patient denies any other acute symptoms other than above. All other systems are negative Physical Exam Vital Signs: RN Vital Signs have been reviewed: Yes, Temperature: 98.3, Source: Oral, Heart Rate: 85, Respiratory Rate: 16, BP: 170/100, Pulse Oximetry: 99, Weight: 45.400 Oxygen Flow Rate: 0 Pulse Oximetry Reflects: adequate oxygenation Physical Exam General Appearance: No distress HEENT: Normal OP, moist oral mucosa, PERRL, EOMI Neck: supple, normal ROM, trachea midline Pulmonary: No respiratory distress, CTA, BS equal Cardiac: RRR, no murmur, rub or gallop, GI: nondistended, soft, nontender, normal bowel sounds, no guarding, no rebound Extremities: normal ROM, no swelling, non-tender Skin: intact, dry, warm, no rashes Neuro: AAOx3, speech is clear, no focal motor weakness Psych: normal affect, good eye contact, no apparent hallucination, normal speech Progress Results/Orders Results/Orders Vital Signs 06/14/25 06/14/25 06/14/25 06/14/25 07:55 08:00 08:02 09:10 Temp 98.3 98.3 Pulse 75 85 64 Resp 15 16 15 B/P (MAP) 170/100 170/100 (123) 126/86 Pulse Ox 97 99 99 O2 Flow Rate 0 0 Medical Decision Making Findings Differential diagnosis includes but is not limited to: Anxiety, panic attack Emergency department course/medical decision-making: Patient is a 69-year-old man with known anxiety and panic attacks. Paramedics was able to calm the patient down prior to arrival. Patient is feeling better now. Patient states that he has not been sleeping for several days. Patient will be given a short prescription for trazodone to see if that may help with his sleep and anxiety. He is instructed to follow up with his primary care doctor. Patient is stable for discharge. Departure Time of Disposition: 09:01 Disposition: 01 HOME / SELF CARE / HOMELESS Impression: Primary Impression: Panic attack Condition: Improved Discharge Instructions: Panic Attack Additional Instructions: FOLLOW UP WITH YOUR PRIMARY CARE DOCTOR FOR YOUR MEDICATIONS. YOU MAY TRY THE TRAZODONE FOR SLEEP IF NEEDED. Prescriptions Trazodone HCl (Trazodone HCl) 100 Mg Tablet 1 TAB PO HS, #7 TAB 0 Refills Prov: LYNDSEY MARAVILLA MD 06/14/25 Education Educated: Patient Educated regarding: diagnosis, treatment, need for follow up Signature Scribe Signature: No scribe Attestation: No scribe LYNDSEY MARAVILLA MD Jun 14, 2025 09:02
[2025-06-14 09:10] VITALS: BP 126/86; PULSE 64; RESP 15; O2SAT 99
== END 2025-06-14 09:15 | disposition home or self-care (01) ==
LOC: ER 07:41
DX: F41.0 Panic disorder [episodic paroxysmal anxiety] (principal); I10 Essential (primary) hypertension; J44.9 Chronic obstructive pulmonary disease, unspecified; Z79.82 Long term (current) use of aspirin; Z79.899 Other long term (current) drug therapy
CPT/HCPCS: 99283